=== PATIENT | male | born 1965 | race Caucasian/White ===

== ENCOUNTER 2020-03-01 15:52 | Emergency (ER) | payer OTHER ==
[~2020-03-01] VITALS: Ht 180.3 cm; Wt 127.9 kg
[2020-03-01] MEDS ORDERED: CARVEDILOL12.5 MG PO (16:03)
[2020-03-01] MEDS ORDERED: ALLOPURINOL 10100 M3 PO (16:03)
[2020-03-01] MEDS ORDERED: METFORMIN HCL500 M3 PO (16:03)
[2020-03-01] MEDS ORDERED: PAROXETINE ER25 MG PO (16:04)
[2020-03-01 18:13] LABS: URINE BILIRUBIN NEGATIVE (Negative); URINE BLOOD 2+ (Negative); URINE CLARITY CLEAR; URINE COLOR YELLOW; URINE GLUCOSE-RANDOM 3+ (Negative); URINE KETONES NEGATIVE (Negative); URINE LEUKOCYTES NEGATIVE (Negative); URINE NITRITE NEGATIVE (Negative); URINE PROTEIN TRACE (Negative); URINE SPECIFIC GRAVITY >= 1.030 (1.005-1.030)
[2020-03-01 18:22] LABS: BACTERIA 1-9 Few /HPF (None Seen); CASTS None Seen /LPF (None Seen); CRYSTALS None Seen /LPF (None Seen); SQUAMOUS 0-3 Few /LPF (0-3); URINE RBC 0-2 Rare /HPF (0-2); URINE WBC 0-5 Rare /HPF (0-5)
[2020-03-01 18:27] LABS: ABSOLUTE BASOPHILS 0.1 thou/uL (0.0-0.2); ABSOLUTE EOSINOPHILS 0.2 thou/uL (0.0-0.7); ABSOLUTE MONOCYTES 0.7 thou/uL (0.0-1.2); ABSOLUTE NEUTROPHILS 6.2 thou/uL (1.6-8.1); BASOPHILS 0.8 %; HEMATOCRIT 44.3 % (42.0-52.0); HEMOGLOBIN 14.6 gm/dL (14.0-18.0); LYMPHOCYTES 12.4 %; MCH 30.1 pg (26.0-34.0); MONOCYTES 8.9 %; MPV 7.4 fl. (7.2-11.1); NUCLEATED RBCS 0 /100WBC; PLATELET COUNT* 240 thou/uL (150-400); POLYS 74.9 %; RBC 4.86 mil/uL (4.50-6.00); RDW-CV 15.4 % (10.5-14.5); WBC 8.3 thou/uL (4.0-11.0)
[2020-03-01 18:35] LABS: CALCIUM 9.4 mg/dL (8.5-10.1); CREATININE 1.3 mg/dL (0.6-1.3); POTASSIUM 4.3 mmol/L (3.5-5.1)
[2020-03-01 18:45] LABS: ALBUMIN 3.6 g/dL (3.4-5.0); TOTAL BILIRUBIN 1.4 mg/dL (<0.1-1.0); TOTAL PROTEIN 8.7 g/dL (6.4-8.2)
[2020-03-01] MEDS ORDERED: NORCO 5-325 TA1 EAC2 PO (19:45)
[2020-03-01] MEDS ORDERED: FLOMAX0.4 MG PO (19:45)
[2020-03-01] MEDS ORDERED: ZOFRAN ODT4 MG PO (19:45)
[2020-03-01 20:13] VITALS: BP 156/84
== END 2020-03-01 20:13 | disposition home or self-care (01) ==
LOC: M.ERS 15:52
PROVIDERS: Physician Assistant
DX: N20.1 Calculus of ureter (principal); K52.9 Noninfective gastroenteritis and colitis, unspecified; R74.01 Elevation of levels of liver transaminase levels; E11.9 Type 2 diabetes mellitus without complications; Z87.442 Personal history of urinary calculi; Z79.899 Other long term (current) drug therapy

== ENCOUNTER 2021-02-15 04:17 | Emergency (ER) | payer OTHER ==
[~2021-02-15] VITALS: Ht 180.3 cm; Wt 131.5 kg
[~2021-02-15 04:17] MED LIST: ALLOPURINOL 10100 M3 PO; CARVEDILOL12.5 MG PO; FLOMAX0.4 MG PO; METFORMIN HCL500 M3 PO; NORCO 5-325 TA1 EAC2 PO; PAROXETINE ER25 MG PO; ZOFRAN ODT4 MG PO
[2021-02-15] MEDS ORDERED: EFFER-K 20 MEQ20 ME1 PO (04:35)
[2021-02-15] MEDS ORDERED: LISINOPRIL30 MG PO (04:35)
[2021-02-15 05:43] LABS: ABSOLUTE BASOPHILS 0.1 thou/uL (0.0-0.2); ABSOLUTE EOSINOPHILS 0.3 thou/uL (0.0-0.7); ABSOLUTE LYMPHOCYTES 1.2 thou/uL (0.8-5.3); ABSOLUTE MONOCYTES 0.8 thou/uL (0.0-1.2); ABSOLUTE NEUTROPHILS 9.1 thou/uL (1.6-8.1); BASOPHILS 0.6 %; EOSINOPHILS 2.7 %; HEMATOCRIT 37.2 % (42.0-52.0); HEMOGLOBIN 12.2 gm/dL (14.0-18.0); LYMPHOCYTES 10.1 %; MCH 29.4 pg (26.0-34.0); MCHC 32.8 g/dL (28.0-37.0); MCV 89.5 fL (80.0-100.0); MONOCYTES 7.1 %; MPV 7.2 fl. (7.2-11.1); NUCLEATED RBCS 0 /100WBC; PLATELET COUNT* 210 thou/uL (150-400); POLYS 79.5 %; RBC 4.15 mil/uL (4.50-6.00); WBC 11.5 thou/uL (4.0-11.0)
[2021-02-15 05:52] LABS: CALCIUM 8.7 mg/dL (8.5-10.1); CREATININE 1.7 mg/dL (0.6-1.3); POTASSIUM 3.9 mmol/L (3.5-5.1)
[2021-02-15 05:57] LABS: ALBUMIN 3.4 g/dL (3.4-5.0); TOTAL BILIRUBIN 1.1 mg/dL (<0.1-1.0)
[2021-02-15 06:12] LABS: URINE BILIRUBIN NEGATIVE (Negative); URINE BLOOD TRACE (Negative); URINE CLARITY CLEAR; URINE COLOR YELLOW; URINE GLUCOSE-RANDOM NEGATIVE (Negative); URINE KETONES NEGATIVE (Negative); URINE LEUKOCYTES-REFLEX NEGATIVE (Negative); URINE NITRITE-REFLEX NEGATIVE (Negative); URINE PROTEIN NEGATIVE (Negative); URINE SPECIFIC GRAVITY 1.025 (1.005-1.030)
[2021-02-15] MEDS ORDERED: CIPROFLOXACIN500 M1 PO (08:35)
[2021-02-15] MEDS ORDERED: FLOMAX0.4 MG PO (08:35)
[2021-02-15] MEDS ORDERED: PERCOCET PO (08:35)
[2021-02-15 08:44] VITALS: BP 151/82
== END 2021-02-15 08:46 | disposition home or self-care (01) ==
LOC: M.ERS 04:17
PROVIDERS: Personal Emergency Response Attendant
DX: N23 Unspecified renal colic (principal); N20.0 Calculus of kidney; E11.9 Type 2 diabetes mellitus without complications; Z87.442 Personal history of urinary calculi; Z98.890 Other specified postprocedural states; Z79.84 Long term (current) use of oral hypoglycemic drugs; Z79.1 Long term (current) use of non-steroidal anti-inflammatories (NSAID); Z79.899 Other long term (current) drug therapy